=== PATIENT | female | born 1975 | race Caucasian/White ===

== ENCOUNTER → 2022-11-10 | Day surgery (SDC) | payer BC, OTHER ==
[2022-11-05 08:25] LABS: Absolute Lymphocytes (CBC) 2.1 K/uL (0.7-4.9); Hematocrit 38.4 % (36.0-45.0); Lymphocytes % 43.8 % (15.3-44.8); MPV 7.9 fL (7.6-11.3); RBC Red Blood Cell Count 4.13 M/uL (3.86-4.86)
[2022-11-05 08:41] LABS: Potassium 4.4 mEq/L (3.5-5.1)
[~2022-11-10] MED LIST: BUPIVACAINE 0.5% PF 10 ML VIAL ONE; CEFAZOLIN SODIUM 1 GM/VIAL ONE; EPHEDRINE SULF 50 MG/ML VIAL ONE; FENTANYL CITR 100 MCG/2 ML ONE; GLYCOPYRROLATE 0.2 MG/ML SYR ONE; HYDROCODONE/APAP 7.5/325 MG TAB ONE; KETOROLAC 30 MG/ML INJ ONE; LIDOCAINE 2% MPF 5 ML VIAL ONE; MIDAZOLAM HCL 2 MG/2 ML INJ ONE; ONDANSETRON 4 MG/2 ML VIAL ONE; Ringers Lactate 1,000 ML IV ONE; dexAMETHasone 10 MG/ML VIAL ONE; propofoL 200 MG/20 ML VIAL IV ONE
[2022-11-10] MEDS: HYDROMORPHONE HCL 1 MG/ML INJ ONE ×6 (11:55→12:20)
--- NOTE | 2022-11-10 13:16 | RAD REPORT ---
EXAM DESCRIPTION: RAD - Wrist Left 2 View - 11/10/2022 11:58 am CLINICAL HISTORY: LT REMOVAL OF HARDWARE Pain COMPARISON: No comparisons FINDINGS: Fluoroscopy time: 0.1 minutes. 6 fluoroscopic images obtained.
[2022-11-10 13:43] VITALS: BP 144/85; TEMP 97.2; O2SAT 97
--- NOTE | 2022-11-10 18:36 | OP ---
Date of Procedure: 11/10/2022 Surgeon: Jose Cano MD Preoperative Diagnoses: 1.Carpal tunnel syndrome. 2.Left third trigger digit. 3.Retained third metacarpal dorsal plate. Postoperative Diagnoses: 1.Carpal tunnel syndrome. 2.Left third trigger digit. 3.Retained third metacarpal dorsal plate. Procedures: 1.Left open carpal tunnel release. 2.Left third trigger digit release. 3.Left removal of plate from third metacarpal. Estimated Blood Loss: Less than 5 cc. Complications: There were no complications. Indications For Operation: Ms. Huffman is a patient whom I have seen in the past. She unfortunately had an injury to her hand in the past and had a derotational osteotomy with plating, which went on t o heal and has done extremely well. She unfortunately continues to have carpal tunnel syndrome on th e left side as well as complaints of third digit triggering. She does have NCVs, which demonstrated carpal tunnel syndrome and risks, benefits, and alternatives to different methods of treating this ritchie ve been discussed with her. She states she understands things as presented and opts for open carpal tunnel release as well as trigger digit release and also desires removal of the dorsal plate, which h as done its job, but is no longer required and she would like to have this done as well. Risks, bene fits, and alternatives to each of these procedures have been discussed with the patient. She states she understands things as presented and wishes to proceed. Description Of Procedure: The patient was taken to the operating room, placed in supine position. G eneral anesthesia obtained by the staff. Following this, a well-padded tourniquet was placed on supe rior left arm. Left upper extremity was then prepped and draped in the usual sterile fashion. The a rm was then elevated, but not exsanguinated. Tourniquet was raised. Attention was first turned to t he plate and a previous incision could still be seen, although it is very well matured. A C-arm was brought in to ensure correct placement of the incision and janet out the proximal distal aspects of th e plate. A longitudinal incision was made at the old incision, taken down carefully through skin onl y. Meticulous hemostasis being maintained using bipolar electrocautery. The tendons were carefully moved and protected as the plate was then exposed dorsally with a combination of knife, rongeur, and a wooden handle elevator. This exposed the entire plate as well as all the screws. Five screws were then removed and it was then checked with the C-arm to ensure that there were no further screws and the plate was removed using gentle prying. After this, the rongeur was used to gently smooth the nya k of the metacarpal to avoid any bony prominence. The wound was gently irrigated and the skin was cl osed using interrupted horizontal mattress 4-0 nylons. Attention was then turned to the third trigge r digit. An incision was made at the correct level carefully through skin only. Meticulous hemostas is being maintained using bipolar electrocautery. It was then spread until the tendon sheath. Tendo n and A1 jeaneth are exposed. This was followed by use of a knife and scissors to divide the A1 pulle y. It was checked both proximally and distally to ensure there were no constricting bands. After th is, it was gently irrigated and the skin was closed. There was no abnormal tendon motion. Attention was then turned to the carpal tunnel. A standard incision was made, which parallels the thenar crea se with slight ulnar deviation at the most distal wrist crease, taken down carefully through skin onl y. Meticulous hemostasis being maintained using bipolar electrocautery. This leads to the palmar fa scia, which was then divided longitudinally. Any obstructions of the transverse carpal ligament were then gently swept to the side. A small alina was made in the transverse carpal ligament. It should be noted that the median nerve does have quite a bit of fibrous tissue around it and it is slightly a dhesed to the transverse carpal ligament. Use of hemostats as well as gentle use of [place] elevator a re used to free the transverse carpal ligament from the nerve and the transcarpal ligament was then d ivided in a proximal to distal direction until no constricting bands. It was divided in a distal to proximal direction until there were no constricting bands including significant amount of volar forea rm fascia. After this, the nerve was examined and was found to be in continuity. There was found to be no undue pressure on the nerve. The wound was irrigated and the skin was closed using nylon sutu res. The patient was then placed in a well-padded sterile dressing. Anesthesia is going to inject s ome local anesthetic dorsally and she is taken to recovery room. /KP Voice ID: [id number] Report ID: [id number]
== END ==
LOC: OR 08:03
PROVIDERS: ATTEND Orthopaedic Surgery
PROC: 0LN80ZZ Release Left Hand Tendon, Open Approach (ICD-10-PCS; 2022-11-10)
PROC: 0RP Upper Joints, Removal (ICD-10-PCS; 2022-11-10)
PROC: 01N50ZZ Release Median Nerve, Open Approach (ICD-10-PCS; principal; 2022-11-10 10:00)
DX: G56.02 Carpal tunnel syndrome, left upper limb (principal); M65.332 Trigger finger, left middle finger; Z96.9 Presence of functional implant, unspecified; R22.0 Localized swelling, mass and lump, head; M25.542 Pain in joints of left hand
CPT/HCPCS: 85025; 80048; 36415; 88300; 73100; 64721; 26055; 26320; J2704; J2001; J2250; J3010 ×2; J1100; J1170 ×3; J2405 ×2; J7120 ×2; J0690

== ENCOUNTER 2023-11-03 11:32 | Emergency (ER) | payer BC ==
[2023-11-03] MEDS ORDERED: KETOROLAC 30 MG/ML INJ ONE (12:16)
[2023-11-03] MEDS ORDERED: LORazepam 2 MG/ML VIAL ONE (12:16)
[2023-11-03] MEDS ORDERED: ONDANSETRON 4 MG/2 ML VIAL ONE (12:16)
[2023-11-03 12:26] LABS: Absolute Basophils 0.1 K/uL (0-0.5); Absolute Eosinophils 0.2 K/uL (0-0.5); Absolute Lymphocytes (CBC) 2.8 K/uL (0.7-4.9); Absolute Monocytes 0.5 K/uL (0.1-1.3); Absolute Neutrophil 5.2 K/uL (1.8-8.0); Basophils % 1.2 % (0-1.3); Eosinophils % 2.7 % (0-4.4); Hematocrit 38.9 % (36.0-45.0); Hemoglobin 13.1 g/dL (12.0-15.0); Lymphocytes % 31.3 % (15.3-44.8); MCH 31.7 pg (27.0-35.0); MCHC 33.7 g/dL (32.0-36.0); MCV 94.1 fL (80-100); MPV 8.2 fL (7.6-11.3); Monocytes % 6.2 % (3.3-12.3); Neutrophils % 58.6 % (41.7-73.7); Platelets 209 thou/uL (152-406); RBC Red Blood Cell Count 4.13 M/uL (3.86-4.86); Red Cell Distribution Width 13.2 % (12.1-15.2)
[2023-11-03 12:48] LABS: ALT/SGPT 20 U/L (13-56); AST/SGOT 14 U/L (15-37); Albumin 3.7 g/dL (3.4-5.0); Alkaline Phosphatase 92 U/L (45-117); Anion Gap 6.6 mEq/L (5.0-15.0); BUN Blood Urea Nitrogen 5 mg/dL (7-18); Bicarbonate 30 mEq/L (21-32); Bilirubin Total 0.3 mg/dL (0.2-1.0); Globulin 3.8 g/dL (2.3-3.5); Glomerular Filtration Rate 86 ml/min (=/>90); Glucose Level 93 mg/dL (74-106); Magnesium 2.1 mg/dL (1.6-2.4); NT PRO-BNP 301 pg/mL (<125); Potassium 3.6 mEq/L (3.5-5.1); Protein, Total 7.5 g/dL (6.4-8.2); Sodium Level 141 mEq/L (136-145); Troponin High Sensitivity 5.4 pg/mL (<58.9)
[2023-11-03 12:49] LABS: Bilirubin Direct < 0.2 mg/dL (0-0.2); Bilirubin Indirect, Calculated 0.1 mg/dL (0.2-0.8)
--- NOTE | 2023-11-03 13:01 | RAD REPORT ---
EXAM DESCRIPTION: RAD - Chest Single View - 11/03/2023 12:54 pm CLINICAL HISTORY: CHEST PAIN Chest pain. COMPARISON: CHEST SINGLE VIEW dated 11/09/2011 FINDINGS: Portable technique limits examination quality. The lungs are grossly clear. The heart is normal in size. No displaced fractures. IMPRESSION: No acute intrathoracic process suspected.
--- NOTE | 2023-11-03 14:24 | ER ---
Nurse's Notes [facility] Name: Jacqueline Kwok Age: 48 yrs Sex: Female : 1975 Arrival Date: 11/03/2023 Time: 11:32 Bed 13 Private MD: Diagnosis: Chest pain, unspecified Presentation: 11/02 11:44 Chief complaint: Patient states: was at her pain doctor and she started having chest iw pain, and her BP was high, they told her to come to ER, she has been having a migraine X 2 days and now she can't feel her lips , it does not feel like a panic attack. Coronavirus screen: At this time, the client does not indicate any symptoms associated with coronavirus-19. Ebola Screen: No symptoms or risks identified at this time. Risk Assessment: Do you want to hurt yourself or someone else? Patient reports no desire to harm self or others. Onset of symptoms was November 03, 2023. 11:44 Method Of Arrival: Wheelchair iw 11:44 Acuity: ALHAJI 3 iw 12:30 Initial Sepsis Screen: Does the patient meet any 2 criteria? No. Patient's initial tl4 sepsis screen is negative. Does the patient have a suspected source of infection? No. Patient's initial sepsis screen is negative. 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 - Infectious Disease History:: Denies. - Social history:: Smoking status: Patient reports the use of cigarette tobacco products, smokes one pack cigarettes per day. Screenin:28 [facility] ED Fall Risk Assessment (Adult) History of falling in the last 3 months, tl4 including since admission No falls in past 3 months (0 pts) Confusion or Disorientation No (0 pts) Intoxicated or Sedated No (0 pts) Impaired Gait No (0 pts) Mobility Assist Device Used No (0 pt) Altered Elimination No (0 pt) Score/Fall Risk Level 0 - 2 = Low Risk Oriented to surroundings, Maintained a safe environment, Educated pt \T\ family on fall prevention, incl call for assistance when getting out of bed, Assessed \T\ reinforced patient's understanding of fall precautions, Hourly rounding (assess needs \T\ fall precautionary measures) done, Used ambulatory aids as needed (educated on \T\ assisted with), Used gait belt as appropriate. Abuse screen: Denies threats or abuse. Denies injuries from another. Nutritional screening: No deficits noted. Tuberculosis screening: No symptoms or risk factors identified. Assessment: 12:21 General: Appears distressed, Behavior is cooperative, anxious. Pain: Complains of pain tl4 in chest Pain does not radiate. Pain began gradually, 2-3 days ago. Neuro: Level of Consciousness is awake, alert, obeys commands, Oriented to person, place, time, situation, Moves all extremities. Full function. Cardiovascular: Capillary refill < 3 seconds Patient's skin is warm and dry. Respiratory: Airway is patent Respiratory effort is even, unlabored, Respiratory pattern is regular, symmetrical, Breath sounds are clear bilaterally. GI: No signs and/or symptoms were reported involving the gastrointestinal system. : No signs and/or symptoms were reported regarding the genitourinary system. EENT: No signs and/or symptoms were reported regarding the EENT system. Derm: No signs and/or symptoms reported regarding the dermatologic system. Musculoskeletal: No signs and/or symptoms reported regarding the musculoskeletal system. 13:54 Reassessment: Patient and/or family updated on plan of care and expected duration. Pain tl4 level reassessed. Patient is alert, oriented x 3, equal unlabored respirations, skin warm/dry/pink. Pt sleeping, no complaints. Family at bedside. Will continue to monitor Patient denies pain at this time. Patient states feeling better. Vital Signs: 11:47 BP 167 / 104; Pulse 67; Resp 16; Temp 98.4; Pulse Ox 97% ; Weight 81.65 kg; Height 5 iw ft. 5 in. ; Pain 8/10; 12:00 BP 177 / 94; Pulse 67; Resp 13; Pulse Ox 98% on R/A; tl4 12:30 BP 180 / 102; Pulse 65; Resp 16; Pulse Ox 97% on R/A; tl4 13:00 BP 132 / 85; Pulse 63; Resp 18; Pulse Ox 96% on R/A; tl4 13:30 BP 122 / 79; Pulse 63; Resp 17; Pulse Ox 96% on R/A; tl4 11:47 Body Mass Index 29.95 (81.65 kg, 165.1 cm) iw 11:47 Pain Scale: Adult iw ED Course: 11:34 Patient arrived in ED. mr 11:34 George Gardner DO is Attending Physician. ms3 11:46 Triage completed. iw 12:17 Basic Metabolic Panel Sent. bc6 12:18 CBC with Diff Sent. bc6 12:18 LFT's Sent. bc6 12:18 Magnesium Sent. bc6 12:18 NT PRO-BNP Sent. bc6 12:18 Troponin HS Sent. bc6 12:19 Christos Del Rosario, RN is Primary Nurse. tl4 12:19 No provider procedures requiring assistance completed. Initial lab(s) drawn, by me, tl4 sent to lab. EKG done, by ED staff, reviewed by George Gardner DO. Inserted saline lock: 22 gauge in right forearm, using aseptic technique. Blood collected. O2 via room air. 12:28 Patient has correct armband on for positive identification. Placed in gown. Bed in low tl4 position. Call light in reach. Side rails up X 1. Adult w/ patient. Provided Education on: ED process. Client placed on continuous cardiac and pulse oximetry monitoring. NIBP monitoring applied. case monitor on. Door closed. Noise minimized. Moved to private room. Warm blanket given. 12:31 Arm band placed on left wrist. tl4 12:56 XRAY Chest (1 view) In Process Unspecified. EDMS 13:39 Troponin High Sensitivity Sent. tl4 13:53 Troponin High Sensitivity Sent. tl4 14:23 Aakash Hills MD is Referral Physician. ms3 14:39 IV discontinued, intact, bleeding controlled, No redness/swelling at site. ld1 Administered Medications: 12:31 Drug: Ondansetron IVP 4 mg IVP once; over 2 minutes Route: IVP; Infused Over: 2 mins; tl4 Site: right forearm; 13:40 Follow up: Response: No adverse reaction; Nausea is decreased tl4 12:32 Drug: Ketorolac IVP 10 mg 10 mg IVP once Route: IVP; Site: right forearm; tl4 13:40 Follow up: Response: No adverse reaction; Pain is decreased tl4 12:32 Drug: Ativan IVP 1 mg IVP once Route: IVP; Site: right forearm; tl4 13:40 Follow up: Response: No adverse reaction; Anxiety decreased tl4 Medication: 12:21 VIS not applicable for this client. tl4 Outcome: 14:23 Discharge ordered by . ms3 14:39 Discharged to home ambulatory, ld1 14:39 Condition: stable 14:39 Discharge instructions given to patient, Instructed on discharge instructions, follow up and referral plans. Demonstrated understanding of instructions, follow-up care, 14:39 Patient left the ED. ld1 Signatures: Dispatcher [employer] EDMS VasquezSammi segura, Reg Reg mr Brook Trejo, RN RN iw George Gardner DO DO ms3 Lisa Gardner RN RN ld1 Liane Bosch 6 Christos Del Rosario RN RN tl4 Corrections: (The following items were deleted from the chart) 11:49 11:47 Pulse 67bpm; Resp 16bpm; Pulse Ox 97%; Temp 98.4F; 81.65 kg; Height 5 ft. 5 in.; iw BMI: 29.9; Pain 8/10, Adult; iw
--- NOTE | 2023-11-03 14:24 | EDPHYS ---
Physician Documentation [facility] Name: Jacqueline Kwok Age: 48 yrs Sex: Female : 1975 Arrival Date: 11/03/2023 Time: 11:32 Bed 13 Private MD: ED Physician George Gardner HPI: 11/02 11:57 This 48 yrs old Unknown Female presents to ER via Wheelchair with complaints of Chest ms3 Pain. 11:57 48-year-old female with past medical history of migraine, back pain, bipolar presents ms3 to the emergency department for chest pain. She states she experienced chest pain 2 days ago that subsided and it returned this morning. The pain is currently rated an 8/10. She endorses headache, nausea, shortness of breath. 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 - Infectious Disease History:: Denies. - Social history:: Smoking status: Patient reports the use of cigarette tobacco products, smokes one pack cigarettes per day. ROS: 11:57 Constitutional: Negative for fever, and chills. Neck: Negative for injury, pain, and ms3 swelling, 11:57 Cardiovascular: Positive for chest pain, 11:57 Respiratory: Positive for shortness of breath, 11:57 Neuro: Positive for headache, Exam: 11:57 Constitutional: This is a well developed, well nourished patient who is awake, alert, ms3 and in no acute distress. Head/Face: Normocephalic, atraumatic. Neck: Trachea midline, no cervical lymphadenopathy. Supple, full range of motion without nuchal rigidity, or vertebral point tenderness. No Meningismus. Chest/axilla: Normal chest wall appearance and motion. Nontender with no deformity. Cardiovascular: Regular rate and rhythm with a normal S1 and S2. No gallops, murmurs, or rubs. Normal PMI, no JVD. No pulse deficits. Respiratory: Lungs have equal breath sounds bilaterally, clear to auscultation and percussion. No rales, rhonchi or wheezes noted. No increased work of breathing, no retractions or nasal flaring. Skin: Warm, dry with normal turgor. Normal color with no rashes, no lesions, and no evidence of cellulitis. 12:01 ECG was reviewed by the Attending Physician. ms3 Vital Signs: 11:47 BP 167 / 104; Pulse 67; Resp 16; Temp 98.4; Pulse Ox 97% ; Weight 81.65 kg; Height 5 iw ft. 5 in. ; Pain 8/10; 12:00 BP 177 / 94; Pulse 67; Resp 13; Pulse Ox 98% on R/A; tl4 12:30 BP 180 / 102; Pulse 65; Resp 16; Pulse Ox 97% on R/A; tl4 13:00 BP 132 / 85; Pulse 63; Resp 18; Pulse Ox 96% on R/A; tl4 13:30 BP 122 / 79; Pulse 63; Resp 17; Pulse Ox 96% on R/A; tl4 11:47 Body Mass Index 29.95 (81.65 kg, 165.1 cm) iw 11:47 Pain Scale: Adult iw MDM: 11:55 Patient medically screened. ms3 11:57 Differential diagnosis: abnormal EKG, acute myocardial infarction, coronary artery ms3 disease chest wall pain. 14:30 HEART Score: History: Slightly Suspicious (0), ECG: Normal (0), Age: > 45 and < 65 ms3 years (1), Risk Factors: 1 or 2 risk factors (1), Troponin: < or = 1 x Normal Limit (0), Total Score = 2. Data reviewed: vital signs, nurses notes, lab test result(s), EKG, radiologic studies, and as a result, I will discharge patient. I considered the following discharge prescriptions or medication management in the emergency department Medications were administered in the Emergency Department. See MAR. Independent interpretation of the following test(s) in the Emergency Department EKG: See my EKG interpretation above. Counseling: I had a detailed discussion with the patient and/or guardian regarding the historical points, exam findings, and any diagnostic results supporting the discharge/admit diagnosis, lab results, radiology results, the need for outpatient follow up, to return to the emergency department if symptoms worsen or persist or if there are any questions or concerns that arise at home. Response to treatment: the patient's symptoms have mildly improved after treatment, and as a result, I will discharge patient. Special discussion: I discussed with the patient/guardian in detail that at this point there is no indication for admission to the hospital. It is understood, however, that if the symptoms persist or worsen the patient needs to return immediately for re-evaluation. ED course: Discussed labs, EKG, chest x-ray findings with patient. Patient to follow-up with Dr. Hills in 1 to 2 days. Patient understands and agrees with plan. All questions were answered. Return precautions discussed include worsening symptoms, or any other concerns. On reevaluation patient is alert and oriented x 4, in no apparent distress, nontoxic-appearing, speaking full sentences. 11/02 11:56 Order name: Basic Metabolic Panel; Complete Time: 12:51 ms3 11/02 11:56 Order name: CBC with Diff; Complete Time: 12:51 ms3 11/02 11:56 Order name: LFT's; Complete Time: 12:51 ms3 11/02 11:56 Order name: Magnesium; Complete Time: 12:51 ms3 11/02 11:56 Order name: NT PRO-BNP; Complete Time: 12:51 ms3 11/02 11:56 Order name: Troponin HS; Complete Time: 12:51 ms3 11/02 13:18 Order name: Troponin High Sensitivity; Complete Time: 14:11 ms3 11/02 11:56 Order name: XRAY Chest (1 view); Complete Time: 13:04 ms3 11/02 11:56 Order name: EKG; Complete Time: 11:56 ms3 11/02 11:56 Order name: Cardiac monitoring; Complete Time: 12:17 ms3 11/02 11:56 Order name: EKG - Nurse/Tech; Complete Time: 11:59 ms3 11/02 11:56 Order name: IV Saline Lock; Complete Time: 12:17 ms3 11/02 11:56 Order name: Labs collected and sent; Complete Time: 12:17 ms3 11/02 11:56 Order name: O2 Per Protocol; Complete Time: 11:59 ms3 11/02 11:56 Order name: O2 Sat Monitoring; Complete Time: 11:59 ms3 EC:01 Rate is 67 beats/min. Rhythm is regular. QRS [place] is Normal. CA interval is normal. QRS ms3 interval is normal. Clinical impression: NSR w/ Non-specific ST/T Changes. Interpreted by me. Reviewed by me. Administered Medications: 12:31 Drug: Ondansetron IVP 4 mg IVP once; over 2 minutes Route: IVP; Infused Over: 2 mins; tl4 Site: right forearm; 13:40 Follow up: Response: No adverse reaction; Nausea is decreased tl4 12:32 Drug: Ketorolac IVP 10 mg 10 mg IVP once Route: IVP; Site: right forearm; tl4 13:40 Follow up: Response: No adverse reaction; Pain is decreased tl4 12:32 Drug: Ativan IVP 1 mg IVP once Route: IVP; Site: right forearm; tl4 13:40 Follow up: Response: No adverse reaction; Anxiety decreased tl4 Disposition Summary: 11/03/23 14:23 Discharge Ordered Notes: Location: Home ms3 Condition: Stable ms3 Diagnosis - Chest pain, unspecified ms3 Followup: ms3 - With: Aakash Hills MD - When: 1 - 2 days - Reason: Recheck today's complaints Discharge Instructions: - Discharge Summary Sheet ms3 - Nonspecific Chest Pain, Adult ms3 Forms: - Medication Reconciliation Form ms3 - Antibiotic Education ms3 - Prescription Opioid Use ms3 - Patient Portal Instructions ms3 - Leadership Thank You Letter ms3 Signatures: Dispatcher [employer] EDBrook Ruelas, RN RN iw George Gardner DO DO ms3 Christos Del Rosario RN RN tl4 Corrections: (The following items were deleted from the chart) 11:56 11:56 BASIC METABOLIC PANEL+C.LAB.BRZ ordered. EDMS EDMS 11:56 11:56 CBC+H.LAB.BRZ ordered. EDMS EDMS 11:56 11:56 HEPATIC FUNCTION+C.LAB.BRZ ordered. EDMS EDMS 11:56 11:56 MAGNESIUM+C.LAB.BRZ ordered. EDMS EDMS 11:56 11:56 PROBNP+C.LAB.BRZ ordered. EDMS EDMS 11:56 11:56 Troponin High Sensitivity+C.LAB.BRZ ordered. EDMS EDMS 13:18 13:18 Troponin High Sensitivity+C.LAB.BRZ ordered. EDMS EDMS
[2023-11-03 15:01] VITALS: BP 122/79; TEMP 98.4; O2SAT 96
--- NOTE | 2023-11-04 14:03 | EKG ---
Test Date: 2023-11-03 Test Time: 11:42:44 Soap Tender: ABIOLA MEASUREMENT RESULTS: Intervals: Rate: 67 MS: 156 QRSD: 76 QT: 416 QTc: 439 Holden: P: 41 MS: 156 QRS: -4 T: 14 INTERPRETIVE STATEMENTS: Normal sinus rhythm Cannot rule out Anterior infarct, age undetermined Abnormal ECG No previous ECG available for comparison Electronically Signed On 11-04-23 14:00:02 CDT by Aakash Hills
== END 2023-11-03 14:39 | disposition home or self-care (01) ==
LOC: ER 11:32
DX: R07.9 Chest pain, unspecified (principal); I25.10 Atherosclerotic heart disease of native coronary artery without angina pectoris; F17.210 Nicotine dependence, cigarettes, uncomplicated
CPT/HCPCS: 85025; 80048; 36415; 83735; 80076; 84484 ×2; 83880; 71045; J2405; 93005

== ENCOUNTER 2023-11-23 01:10 | Emergency (ER) | payer BC ==
[2023-11-23] MEDS ORDERED: NA CHLORIDE 0.9% 1,000 ML ONE (02:03)
[2023-11-23 02:11] LABS: PT Prothrombin Time 12.4 SECONDS (9.5-12.5); Protime INR 1.13
[2023-11-23 02:13] LABS: Absolute Basophils 0.1 K/uL (0-0.5); Absolute Eosinophils 0.1 K/uL (0-0.5); Absolute Lymphocytes (CBC) 1.8 K/uL (0.7-4.9); Absolute Monocytes 0.3 K/uL (0.1-1.3); Absolute Neutrophil 3.5 K/uL (1.8-8.0); Basophils % 1.5 % (0-1.3); Eosinophils % 2.5 % (0-4.4); Hematocrit 37.7 % (36.0-45.0); Hemoglobin 12.8 g/dL (12.0-15.0); Lymphocytes % 30.8 % (15.3-44.8); MCH 31.9 pg (27.0-35.0); MCHC 33.9 g/dL (32.0-36.0); MPV 8.4 fL (7.6-11.3); Monocytes % 5.3 % (3.3-12.3); Neutrophils % 59.9 % (41.7-73.7); Nucleated Red Blood Cells % 0.1 % (0-0); Platelets 143 thou/uL (152-406); Red Cell Distribution Width 13.5 % (12.1-15.2)
[2023-11-23 02:25] LABS: Anion Gap 9.3 mEq/L (5.0-15.0); Potassium 3.3 mEq/L (3.5-5.1); Troponin High Sensitivity 4.6 pg/mL (<58.9)
--- NOTE | 2023-11-23 03:48 | ER ---
Nurse's Notes [facility] Name: Jacqueline Kwok Age: 48 yrs Sex: Female : 1975 Arrival Date: 11/23/2023 Time: 01:10 Bed 13 Private MD: Diagnosis: Chest pain, unspecified;Headache Presentation: 11/22 01:35 Chief complaint: Patient states: I started to have some chest pain, high blood pressure jw7 and numbness to my upper left arm a couple hours ago, I tried taking a Nitro pill to help. 01:35 Coronavirus screen: At this time, the client does not indicate any symptoms associated jw7 with coronavirus-19. Ebola Screen: No symptoms or risks identified at this time. Initial Sepsis Screen: Does the patient meet any 2 criteria? No. Patient's initial sepsis screen is negative. Does the patient have a suspected source of infection? No. Patient's initial sepsis screen is negative. Risk Assessment: Do you want to hurt yourself or someone else? Patient reports no desire to harm self or others. Onset of symptoms was November 22, 2023. 01:35 Method Of Arrival: Ambulatory jw7 01:35 Acuity: ALHAJI 3 jw7 Triage Assessment: 01:35 General: Appears in no apparent distress. uncomfortable, Behavior is cooperative, jw7 anxious, fussy. Pain: Complains of pain in posterior chest, Head Pain does not radiate. Pain currently is 8 out of 10 on a pain scale. Quality of pain is described as burning, heavy, sharp, Pain began suddenly, Is continuous. EENT: No deficits noted. No signs and/or symptoms were reported regarding the EENT system. Neuro: Level of Consciousness is awake, alert, obeys commands, Oriented to person, place, time, situation, Appropriate for age. Cardiovascular: Heart tones S1 S2 present Capillary refill < 3 seconds Clubbing of nail beds is absent JVD is absent Patient's skin is warm and dry. Rhythm is sinus rhythm. Cardiovascular:. Respiratory: Airway is patent Trachea midline Respiratory effort is even, unlabored, Respiratory pattern is regular, symmetrical, Breath sounds are clear bilaterally. GI: No signs and/or symptoms were reported involving the gastrointestinal system. Abdomen is round non-distended, Bowel sounds present X 4 quads. Abd is soft and non tender X 4 quads. : No deficits noted. No signs and/or symptoms were reported regarding the genitourinary system. Derm: Skin is intact, is healthy with good turgor, Skin is dry, Skin is normal, Skin temperature is warm. Musculoskeletal: Circulation, motion, and sensation intact. Range of motion: intact in all extremities. 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, Not jw7 Historical: - Allergies: 01:35 Iodine; jw7 - Home Meds: 01:35 Zofran Oral [Active]; gabapentin oral [Active]; valproic acid Oral [Active]; Abilify jw7 oral [Active]; Seroquel Oral [Active]; quetiapine oral [Active]; Oxycodone HCl Oral [Active]; Methocarbamol Oral [Active]; CONCERTA Oral [Active]; amlodipine oral [Active]; Nitroglycerin SL [Active]; Toradol Oral [Active]; - PMHx: 01:35 Back pain; biploar; CAD; Migraine; ADHD; Hypothyroidism; Hypertensive disorder; jw7 - PSHx: 01:35 back; Cholecystectomy; hyterectomy; stents; Appendectomy; jw7 - Immunization history:: Adult Immunizations up to date, Client reports receiving the 2nd dose of the Covid vaccine, Flu vaccine is not up to date. - Infectious Disease History:: Denies. - Social history:: Smoking status: Patient reports the use of cigarette tobacco products, smokes 1.5 packs per day, Patient/guardian denies using alcohol, street drugs, IV drugs. Screenin:35 [facility] ED Fall Risk Assessment (Adult) History of falling in the last 3 months, jw7 including since admission No falls in past 3 months (0 pts) Confusion or Disorientation No (0 pts) Intoxicated or Sedated No (0 pts) Impaired Gait Yes (1 pt) Mobility Assist Device Used No (0 pt) Altered Elimination No (0 pt) Score/Fall Risk Level 0 - 2 = Low Risk Oriented to surroundings, Maintained a safe environment, Educated pt \T\ family on fall prevention, incl call for assistance when getting out of bed. Abuse screen: Denies threats or abuse. Denies injuries from another. Nutritional screening: No deficits noted. Tuberculosis screening: No symptoms or risk factors identified. Assessment: 01:35 General: See Triage Assessment. jw7 02:30 Reassessment: Patient appears in no apparent distress at this time. No changes from jw7 previously documented assessment. Patient and/or family updated on plan of care and expected duration. Pain level reassessed. Patient is alert, oriented x 3, equal unlabored respirations, skin warm/dry/pink. 03:30 Reassessment: Patient appears in no apparent distress at this time. Patient and/or jw7 family updated on plan of care and expected duration. Pain level reassessed. Patient is alert, oriented x 3, equal unlabored respirations, skin warm/dry/pink. Patient states feeling better. Patient states symptoms have improved. Pain: Pain currently is 3 out of 10 on a pain scale. 04:14 Reassessment: Patient appears in no apparent distress at this time. No changes from jw7 previously documented assessment. Patient and/or family updated on plan of care and expected duration. Pain level reassessed. Patient is alert, oriented x 3, equal unlabored respirations, skin warm/dry/pink. Vital Signs: 01:35 BP 131 / 90; Pulse 77; Resp 19 S; Temp 98.3(O); Pulse Ox 98% on R/A; Weight 81.65 kg; jw7 Height 5 ft. 5 in. ; Pain 8/10; 02:00 BP 112 / 79; Pulse 73; Resp 20 S; Pulse Ox 98% on R/A; jw7 03:00 BP 95 / 67; Pulse 53; Resp 14 S; Pulse Ox 98% on R/A; jw7 04:00 BP 122 / 73; Pulse 56; Resp 14 S; Pulse Ox 98% on R/A; jw7 01:35 Body Mass Index 29.95 (81.65 kg, 165.1 cm) jw7 01:35 Pain Scale: Adult jw7 ED Course: 01:12 Patient arrived in ED. jj6 01:16 Ethan Mcdonnell MD is Attending Physician. ec2 01:34 Liliana Yu RN is Primary Nurse. jw7 01:35 O2 via RA. jw7 01:35 Arm band placed on. jw7 01:35 Patient has correct armband on for positive identification. Bed in low position. Call 7 light in reach. Side rails up X2. Provided Education on: use of call light. Client placed on continuous cardiac and pulse oximetry monitoring. NIBP monitoring applied. electronic device monitor on. Pulse ox on. NIBP on. 01:52 XRAY Chest (1 view) In Process Unspecified. EDMS 02:06 Initial lab(s) drawn, by me, sent to lab. Inserted saline lock: 22 gauge in right jw7 forearm, using aseptic technique. Blood collected. 02:56 Triage completed. jw7 03:08 No provider procedures requiring assistance completed. jw7 04:15 IV discontinued, intact, bleeding controlled, No redness/swelling at site. Pressure jw7 dressing applied. Administered Medications: 02:19 Drug: Droperidol IVP 2.5 mg IVP once Route: IVP; Site: right forearm; jw7 04:15 Follow up: Response: No adverse reaction; Marked relief of symptoms jw7 02:20 Drug: NS 0.9% IV 1000 ml IV at 1 bolus Per protocol; 1000 mL bolus Route: IV; Rate: 1 jw7 bolus; Site: right forearm; 04:15 Follow up: Response: No adverse reaction; IV Status: Completed infusion; IV Intake: jw7 1000ml Medication: 03:08 VIS not applicable for this client. jw7 Intake: 04:15 IV: 1000ml; Total: 1000ml. jw7 Outcome: 03:47 Discharge ordered by . ec2 04:15 Discharged to home ambulatory, with family, jw7 04:15 Condition: stable 04:15 Discharge instructions given to patient, Instructed on discharge instructions, follow up and referral plans. Demonstrated understanding of instructions, follow-up care, 04:15 Patient left the ED. jw7 Signatures: Dispatcher [employer] Kayy Lindo jj6 Liliana Yu RN RN jw7 Ethan Mcdonnell MD MD ec2
--- NOTE | 2023-11-23 03:48 | EDPHYS ---
Physician Documentation [facility] Name: Jacqueline Kwok Age: 48 yrs Sex: Female : 1975 Arrival Date: 11/23/2023 Time: 01:10 Bed 13 Private MD: ED Physician Ethan Mcdonnell HPI: 11/22 01:56 This 48 yrs old Female presents to ER via Unassigned with complaints of Chest ec2 Pain, Numbness Of Arm, High Blood Pressure, Headache. 01:56 Patient with history of bipolar disorder, hypertension, arrives today for evaluation of ec2 chest pain, body weakness, arm numbness, headache. Patient reports that she has been experiencing symptoms for 1 day. Patient reports no specific alleviating or exacerbating factors. Patient reports no difficulty breathing. Patient reports previous cardiac examination including stress testing which were negative. Patient is scheduled for cardiology appointment in approximately 12 hours.. 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 - Hysterectomy, Not jw7 Historical: - Allergies: 01:35 Iodine; jw7 - Home Meds: 01:35 Zofran Oral [Active]; gabapentin oral [Active]; valproic acid Oral [Active]; Abilify jw7 oral [Active]; Seroquel Oral [Active]; quetiapine oral [Active]; Oxycodone HCl Oral [Active]; Methocarbamol Oral [Active]; CONCERTA Oral [Active]; amlodipine oral [Active]; Nitroglycerin SL [Active]; Toradol Oral [Active]; - PMHx: 01:35 Back pain; biploar; CAD; Migraine; ADHD; Hypothyroidism; Hypertensive disorder; jw7 - PSHx: 01:35 back; Cholecystectomy; hyterectomy; stents; Appendectomy; jw7 - Immunization history:: Adult Immunizations up to date, Client reports receiving the 2nd dose of the Covid vaccine, Flu vaccine is not up to date. - Infectious Disease History:: Denies. - Social history:: Smoking status: Patient reports the use of cigarette tobacco products, smokes 1.5 packs per day, Patient/guardian denies using alcohol, street drugs, IV drugs. ROS: 01:56 Constitutional: as per hpi ec2 Exam: 01:56 Constitutional: GEN: NAD Head: atraumatic Eyes: EOMI Ears: External ears are ec2 normal. CV: regular rate LUNGS: no respiratory distress ABD: non-distended SKIN: no evidence of rashes MSK: no evidence of trauma NEURO: moves all extremities equally Vital Signs: 01:35 BP 131 / 90; Pulse 77; Resp 19 S; Temp 98.3(O); Pulse Ox 98% on R/A; Weight 81.65 kg; jw7 Height 5 ft. 5 in. ; Pain 8/10; 02:00 BP 112 / 79; Pulse 73; Resp 20 S; Pulse Ox 98% on R/A; jw7 03:00 BP 95 / 67; Pulse 53; Resp 14 S; Pulse Ox 98% on R/A; jw7 04:00 BP 122 / 73; Pulse 56; Resp 14 S; Pulse Ox 98% on R/A; jw7 01:35 Body Mass Index 29.95 (81.65 kg, 165.1 cm) [facility] 01:35 Pain Scale: Adult jw7 MDM: 01:16 Patient medically screened. ec2 01:32 ED course: EKG independently reviewed and interpreted by me, shows normal sinus rhythm, ec2 rate of 84, no acute ST segment elevations, intervals are nonconcerning.. 01:56 Data reviewed: vital signs. ED course: Patient arrives today for evaluation of chest ec2 pain. Examination remarkable for well-appearing nontoxic dividual with a reassuring examination. Will obtain lab work, EKG, chest x-ray. Differential diagnosis includes ACS, doubt PE or dissection. Additionally consider nonspecific headache, doubt intracranial brain bleed. Will give the patient droperidol, and crystalloid for the patient's headache.. 02:27 ED course: Metabolic profile shows slight hypokalemia with potassium of 3.3. CBC is ec2 reassuring. Troponin is within normal ranges, coagulation profile is unremarkable. Chest x-ray independently reviewed and interpreted by me, shows no acute intrathoracic process. . 03:47 ED course: On reassessment patient with resolution of her symptoms, is well-appearing ec2 in no acute distress. Given the duration of the patient's symptoms, do not feel be beneficial to obtain repeat EKG and troponin. Will discharge home and have the patient follow-up with her appointment in cardiology later today.. 11/22 01:17 Order name: Basic Metabolic Panel; Complete Time: :27 ec2 11/22 01:17 Order name: CBC with Diff; Complete Time: 02:11/22 01:17 Order name: PT-INR; Complete Time: 02:11/22 01:17 Order name: Troponin HS; Complete Time: 02:11/22 01:17 Order name: XRAY Chest (1 view) 2 11/22 01:17 Order name: EKG; Complete Time: 01:17 2 11/22 01:17 Order name: Cardiac monitoring; Complete Time: 01:41 11/22 01:17 Order name: EKG - Nurse/Tech; Complete Time: 01:34 11/22 01:17 Order name: IV Saline Lock; Complete Time: 02:11/22 01:17 Order name: Labs collected and sent; Complete Time: 02:11/22 01:17 Order name: O2 Per Protocol; Complete Time: :11/22 01:17 Order name: O2 Sat Monitoring; Complete Time: :11/22 01:56 Order name: Misc. Order: droperidol for Headache; Complete Time: 02:06 Administered Medications: 02:19 Drug: Droperidol IVP 2.5 mg IVP once Route: IVP; Site: right forearm; jw7 04:15 Follow up: Response: No adverse reaction; Marked relief of symptoms jw7 02:20 Drug: NS 0.9% IV 1000 ml IV at 1 bolus Per protocol; 1000 mL bolus Route: IV; Rate: 1 jw7 bolus; Site: right forearm; 04:15 Follow up: Response: No adverse reaction; IV Status: Completed infusion; IV Intake: jw7 1000ml Disposition Summary: 11/23/23 03:47 Discharge Ordered Notes: Location: Home ec2 Condition: Stable ec2 Diagnosis - Chest pain, unspecified ec2 - Headache ec2 Followup: ec2 - With: Private Physician - When: - Reason: Re-evaluation by your physician Discharge Instructions: - Discharge Summary Sheet ec2 - Nonspecific Chest Pain, Adult ec2 Forms: - Family Work Release rv1 - Medication Reconciliation Form ec2 - Antibiotic Education ec2 - Prescription Opioid Use ec2 - Patient Portal Instructions ec2 - Leadership Thank You Letter ec2 Signatures: Dispatcher [employer] Liliana Padron, KALIE RN jw7 Ethan Mcdonnell MD MD ec2
[2023-11-23 04:30] VITALS: BP 122/73; TEMP 98.3; O2SAT 98
--- NOTE | 2023-11-23 14:11 | EKG ---
Test Date: 2023-11-23 Test Time: 01:29:38 Line Maintainer: RICKY MEASUREMENT RESULTS: Intervals: Rate: 84 ID: [id number] QRSD: 76 QT: 380 QTc: 449 [place]: P: 50 ID: [id number] QRS: -9 T: 24 INTERPRETIVE STATEMENTS: Normal sinus rhythm Normal ECG Compared to ECG 11/03/2023 11:42:44 Myocardial infarct finding no longer present Electronically Signed On 11-23-23 14:09:43 CDT by Aakash Hills
--- NOTE | 2023-11-23 16:05 | RAD REPORT ---
EXAM DESCRIPTION: RAD - Chest Single View - 11/23/2023 1:51 am CLINICAL HISTORY: The patient is 48 years old and is Female; CHEST PAIN TECHNIQUE: Frontal view of the chest. COMPARISON: No relevant prior studies available. FINDINGS: LUNGS: Unremarkable. No consolidation. PLEURAL SPACE: Unremarkable. No pneumothorax. HEART: Unremarkable. No cardiomegaly. MEDIASTINUM: Unremarkable. Normal mediastinal contour. BONES/JOINTS: Unremarkable. No acute fracture. UPPER ABDOMEN: Unremarkable as visualized. IMPRESSION: No acute cardiopulmonary process. Electronically signed by: Leandra Leiva MD 11/23/2023 02:15 AM CDT RP Due to temporary technical issues with the PACS/Fluency reporting system, reports are being signed by the in house radiologists without review as a courtesy to insure prompt reporting. The interpreting radiologist is fully responsible for the content of the report
== END 2023-11-23 04:15 | disposition home or self-care (01) ==
LOC: ER 01:10
DX: R07.9 Chest pain, unspecified (principal); R51.9 Headache, unspecified; I10 Essential (primary) hypertension; F17.210 Nicotine dependence, cigarettes, uncomplicated
CPT/HCPCS: 96361; 93005; 85025; 80048; 36415; 85610; 84484; 71045; 96374; 99285; J7030

== ENCOUNTER 2024-10-06 07:25 | Day surgery (SDC) | payer BC ==
--- NOTE | 2024-10-05 11:49 | EKG ---
Test Date: 2024-10-04 Test Time: 12:26:25 Occupational Health Coordinator: DUNIA MEASUREMENT RESULTS: Intervals: Rate: 58 NC: 162 QRSD: 76 QT: 434 QTc: 426 [place]: P: 56 NC: 162 QRS: 10 T: 27 INTERPRETIVE STATEMENTS: Sinus bradycardia Possible Left atrial enlargement Cannot rule out Anterior infarct, age undetermined Abnormal ECG Compared to ECG 01/24/2024 07:33:29 Myocardial infarct finding now present Electronically Signed On 10-05-24 11:48:26 CDT by Lb Thompson
[2024-10-06] MEDS: OXYMETAZOLINE HCL 0.05% 30ML NAS ONE ×2 (07:36→09:55)
[2024-10-06] MEDS: Ringers Lactate 1,000 ML IV ONE (07:45)
[2024-10-06] MEDS: SCOPOLAMINE HYDROBROMIDE PATCH TD ONE (08:29)
[2024-10-06] MEDS ORDERED: LIDOCAINE 1% MPF 5 ML VIAL ONE (09:17)
[2024-10-06] MEDS ORDERED: ONDANSETRON 4 MG/2 ML VIAL ONE (09:17)
[2024-10-06] MEDS ORDERED: KETOROLAC 30 MG/ML INJ ONE (09:17)
[2024-10-06] MEDS ORDERED: ROCURONIUM 50 MG/5 ML VIAL IV ONE ×2 (09:17→09:20)
[2024-10-06] MEDS ORDERED: dexAMETHasone 10 MG/ML VIAL ONE (09:17)
[2024-10-06] MEDS ORDERED: VECURONIUM 10 MG/VIAL IV ONE (09:17)
[2024-10-06] MEDS ORDERED: NS 0.9% VIAL 20 ML ONE (09:17)
[2024-10-06] MEDS ORDERED: BACITRACIN OINTMENT 14 GM TUBE TOP ONE (09:18)
[2024-10-06] MEDS ORDERED: FENTANYL CITR 250 MCG/5 ML ONE (09:18)
[2024-10-06] MEDS ORDERED: propofoL 200 MG/20 ML VIAL IV ONE (09:18)
[2024-10-06] MEDS ORDERED: MIDAZOLAM HCL 2 MG/2 ML INJ ONE (09:18)
[2024-10-06] MEDS ORDERED: NEOSTIGMINE 1 MG/ML -10 ML VIAL ONE (11:45)
[2024-10-06] MEDS ORDERED: GLYCOPYRROLATE 0.2 MG/ML SYR ONE (11:45)
[2024-10-06] MEDS: LIDOCAINE HCL/EPINEPHRINE 20 ML MDV ONE (11:48)
[2024-10-06] MEDS ORDERED: Ringers Lactate 1,000 ML IV ONE (12:03)
[2024-10-06] MEDS: FENTANYL CITR 100 MCG/2 ML ONE (12:14)
[2024-10-06 12:33] VITALS: O2SAT 95
--- NOTE | 2024-10-06 12:39 | P.OP ---
Date of Service: 10/06/24 Preoperative Diagnosis: [Chronic right maxillary sinusitis] [, chronic left ethmoid sinusitis] [, chronic left frontal sinusitis] Postoperative diagnosis: Same Procedure: Right maxillary antrostomy via nasal endoscopy. Left total ethmoidectomy with frontal sinus exploration via nasal endoscopy Surgeon: Jill Burns MD Research And Development Specialist: None Indication for procedure: Patient failed maximum medical treatment. Her posttreatment CT scan demonstrated right maxillary mucous retention cyst which was moderately large and persistent ethmoid and frontal sinusitis on the left. The risks, benefits, and alternatives to surgical procedure were discussed with the patient and/or family and they agreed to proceed. Surgical findings: Large right maxillary mucous retention cyst. Mucosal inflammation. Chronic ethmoid and frontal sinusitis with edema of mucosa. IV Fluids: Crystalloid, see anesthesia records for volume Implants/Packing: PosiSep bilateral nasal/sinus cavity Estimated Blood Loss: 30 mL Complications: [none] Description of procedure in detail: The patient was brought to the operating room. They were placed under general anesthesia via oral endotracheal tube. The head of bed was turned 90 degrees. The nasal hairs were trimmed. The nasal cavity was examined with the nasal speculum and headlight with the following findings: The superior portion of the septum was deviated partially to the right. There was a small amount of purulent appearing debris on the middle turbinate.. The nasal cavity was packed with Afrin-soaked pledgets in preparation for the procedure. The patient was draped in a standard fashion for nasal surgery. [Based on the surgical plan and preoperative findings, intraoperative CT navigation was required. The preoperative CT scan was loaded into the Alt12 Appsis device. The registration dongle was applied with adhesive to the patient's forehead. The electromagnetic device was secured to the operating room bed and evaluation to limit interference was confirmed. The registration handpiece was used to perform patient registration in accordance with high school english teacher's instructions including tracing over the course of the external nose and bilateral forehead and cheeks. Accuracy of the registration was confirmed with [id number] matching at the base of the columella, the radix, and the bilateral medial and lateral canthi. Accuracy was felt to be very good.] A 0 degree endoscope was then used to perform a nasal endoscopy with notable findings of scattered dried purulent secretions on the middle turbinate which were collected for culture. Photo documentation was obtained. The middle turbinates and uncinate process on the right and left side were injected with 1% lidocaine with epinephrine. A total of 3 mL was used. A sickle knife was used to divide the right and left middle turbinate due to preoperative findings of sherita bullosa, however the bone was very hard and true entry into the sherita was challenging. A straight Surjit-Cut was used to remove the lateral portion of the middle turbinates. Afrin-soaked pledgets were applied to the middle meatus following this dissection. The left ethmoidectomy was initiated with removal of the uncinate process. The middle turbinate was medialized using a Andrew elevator and a backbiter and Blakesley were used to remove the uncinate process. This allowed better visualization of the ethmoid bulla. The ethmoid bulla was entered using a curette with removal of bony fragments using a straight and 45 and 90 degree Blakesley endoscopic forceps. The precision pointer was used to help identify the lamina papyracea and avoid insult or injury to this structure. Additional dissection was undertaken using forceps and curettes to divide and remove bone and soft tissue from the ethmoid cavity. The precision pointer was used intermittently throughout the dissection to aid in identification of ethmoid cells and to avoid inadvertent violation of the skull base. The ethmoid was packed with Afrin-soaked pledgets and attention was turned to the right side. The right middle turbinate was medialized using a Andrew and the uncinate process was removed using a backbiter and 90 degree Blakesley. Care was taken to open the sinus with additional removal from the inferior aspect of the antrostomy which facilitated visualization of the cyst. A 30 degree scope was used for further dissection and opening with creation of the maxillary antrostomy. Photodocumentation of the maxillary floor cyst was obtained. A 70 degree scope was used for better visualization of the sinus cavity including the floor of the sinus. The 90 degree Blakesley and side biter were used to remove additional fragments of bone, opening the maxillary sinus to allow removal of the polyp. The heuweiser and large [id number] and front to back to wraps were used in order to grasp the wall of the cyst, removing the wall in order to prevent reaccumulation of mucus. The bleeding was minimal and attention was turned back to the left side. The 70 degree endoscope was then used following removal of Afrin-soaked pledgets for visualization of the frontal recess. Based on preoperative CT scan and intraoperative image guidance, ethmoid partitions were removed using a front to back and [id number] as well as small right angled giraffe forceps until the area was dissected. Dissection was somewhat limited based on the reach of the instrumentation. To confirm entry into the true frontal sinus, a balloon dilation device was used to probe the area of the frontal recess and the lighted probe was easily passed into the true sinus with robust illumination of the forehead. The balloon was inflated in this configuration for further dilation and dissection of the frontal recess. Following deflation and removal of the balloon, additional bone fragments were removed using giraffe forceps. Afrin- soaked pledgets were applied to the region for several minutes to aid in hemostasis. Following removal of the pledgets a count was confirmed and the left ethmoid and right middle meatus were packed with PosiSep resorbable nasal dressings which were then thoroughly irrigated with saline. The nasal cavity and nasopharynx were suctioned and there was no evidence of additional bleeding. At the conclusion of the procedure, all pledget counts were confirmed correct. The patient was returned to care of anesthesia for awakening extubation in the operating room which proceeded without difficulty. The patient was transported to the recovery room and will be discharged home later today in the care of their family. The patient is given written and verbal instructions regarding the importance of saline irrigations and nasal precautions. A prescription for tramadol, 5-day supply was sent to patient's pharmacy of record.
[2024-10-06] MEDS: HYDROCODONE/APAP 7.5/325 MG TAB ONE (13:11)
[2024-10-06 14:27] VITALS: BP 157/96; TEMP 98
== END 2024-10-06 14:10 | disposition home or self-care (01) ==
LOC: OR 07:25
PROVIDERS: ATTEND Otolaryngology
PROC: 099Q8ZZ Drainage of Right Maxillary Sinus, Via Natural or Artificial Opening Endoscopic (ICD-10-PCS; 2024-10-06)
PROC: 09JK8ZZ Inspection of Nasal Mucosa and Soft Tissue, Via Natural or Artificial Opening Endoscopic (ICD-10-PCS; principal; 2024-10-06 08:45)
DX: J32.2 Chronic ethmoidal sinusitis (principal); J32.1 Chronic frontal sinusitis; J32.0 Chronic maxillary sinusitis
CPT/HCPCS: 31253; 31256; 93005; 87070; 88305; 61782; A4216; J2704; J2710; J2003; J2250; J3010 ×2; J1100; J2405; J7120; 88304